=== PATIENT | male | born 2000 | race Hispanic/Latino ===

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

== ENCOUNTER 2019-02-20 07:58 | Emergency (ER) | payer SELFPAY ==
[2019-02-20] MEDS ORDERED: MAGNE/ALUM HYDROXD 30 ML UCUP ONE (08:12)
[2019-02-20] MEDS ORDERED: ONDANSETRON 4 MG (ODT) TAB ONE (08:12)
[2019-02-20] MEDS ORDERED: LIDOCAINE VISCOUS 2% SOLN 15 ML UDC ONE (08:12)
[2019-02-20] MEDS ORDERED: IBUPROFEN 400 MG TAB ONE (08:20)
--- NOTE | 2019-02-20 09:35 | ER ---
Nurse's Notes [facility] Name: Larry Cruz Age: 18 yrs Sex: Male : 2000 Arrival Date: 02/20/2019 Time: 08:00 Bed 20 Private MD: Unknown, Unknown Diagnosis: Acute pharyngitis Presentation: 02/20 08:07 Presenting complaint: Patient states: sore throat for 3 days, subjective fever and em threw up x 1 time. Transition of care: patient was not received from another setting of care. Onset of symptoms was February 17, 2019. Risk Assessment: Do you want to hurt yourself or someone else? Patient reports no desire to harm self or others. Initial Sepsis Screen: Does the patient meet any 2 criteria? RR > 20 per min. Temp <36.0*C (96.8*F)) or > 38.3*C (100.9*F). Yes Does the patient have a suspected source of infection? Yes: Other: sore throat. 08:07 Method Of Arrival: Ambulatory em 08:11 Care prior to arrival: None. iw 08:11 Acuity: LAZARO 4 iw Historical: - Allergies: 08:09 No Known Allergies; em - Home Meds: 08:09 None [Active]; em - PMHx: 08:09 None; em - PSHx: 08:09 None; em - Immunization history:: Adult Immunizations not up to date, Last tetanus immunization: up to date Flu vaccine is not up to date. - Social history:: Smoking status: Patient/guardian denies using tobacco. - Ebola Screening: : Patient negative for fever greater than or equal to 101.5 degrees Fahrenheit, and additional compatible Ebola Virus Disease symptoms Patient denies exposure to infectious person Patient denies travel to an Ebola-affected area in the 21 days before illness onset No symptoms or risks identified at this time. Screenin:10 Abuse screen: Denies threats or abuse. Nutritional screening: No deficits noted. em Tuberculosis screening: No symptoms or risk factors identified. Fall Risk None identified. Assessment: 08:09 General: Appears in no apparent distress. uncomfortable, Behavior is calm, cooperative, em Reports chills for >3 days, fever for > 3 days, feeling ill for 2-3 days. Pain: Complains of pain in throat Pain currently is 10 out of 10 on a pain scale. Pain began 2-3 days ago. Neuro: Level of Consciousness is awake, alert, obeys commands, Oriented to person, place, time, situation, Appropriate for age. Cardiovascular: Capillary refill < 3 seconds Patient's skin is warm and dry. Respiratory: Airway is patent Respiratory effort is even, unlabored, Respiratory pattern is regular, symmetrical, Breath sounds are clear bilaterally. Denies cough. GI: Abdomen is flat, Abd is soft and non tender X 4 quads. Reports nausea, vomiting, Patient currently denies diarrhea. EENT: Nares are clear Oral mucosa is moist. Throat is reddened bilaterally Reports difficulty swallowing since 3 days ago. Derm: Skin is intact, is healthy with good turgor, Skin is pink, warm \T\ dry. Musculoskeletal: Capillary refill < 3 seconds, Range of motion: intact in all extremities. 08:43 Reassessment: refused IV and IV fluids, reports he is feeling better and will drink em water, provider notified. 09:40 Reassessment: Patient appears in no apparent distress at this time. Patient and/or em family updated on plan of care and expected duration. Pain level reassessed. Patient is alert, oriented x 3, equal unlabored respirations, skin warm/dry/pink. Vital Signs: 08:09 BP 117 / 84; Pulse 124; Resp 20; Temp 101.4(O); Pulse Ox 100% on R/A; Weight 86.18 kg; em Height 6 ft. 4 in. (193.04 cm); Pain 10/10; 09:07 BP 129 / 67; Pulse 121; Resp 20; Pulse Ox 100% on R/A; em 09:10 Temp 100.7(O); em 08:09 Body Mass Index 23.13 (86.18 kg, 193.04 cm) em ED Course: 08:00 Patient arrived in ED. ag5 08:00 Hedy Gallego FNP-C [facility]. kb 08:01 Tremayne Melendez MD is Attending Physician. kb 08:01 Unknown, Unknown is Private Physician. ag5 08:01 Quinton Solo LVN is Primary Nurse. em 08:09 Arm band placed on. em 08:10 Patient has correct armband on for positive identification. Bed in low position. Call em light in reach. Pulse ox on. NIBP on. 08:10 Flu and/or RSV swab sent to lab. Strep swab sent to lab. em 08:11 Triage completed. iw 08:15 Strep Sent. 08:15 Flu Sent. ch 09:39 No provider procedures requiring assistance completed. Patient did not have IV access em during this emergency room visit. Administered Medications: 08:16 Drug: Zofran 4 mg Route: PO; em 08:20 Follow up: Response: No adverse reaction; Nausea is decreased em 08:20 Drug: GI Cocktail without - (Maalox Suspension 30 ml, Lidocaine Liquid 2 % 15 em ml) Route: PO; 08:49 Follow up: Response: No adverse reaction; Marked relief of symptoms; Pain is decreased em 08:25 Drug: Ibuprofen 800 mg Route: PO; em 08:49 Follow up: Response: No adverse reaction; Pain is decreased em 08:49 Not Given (Patient Refused): NS 0.9% 1000 ml IV at 1000 ml once em Outcome: 09:34 Discharge ordered by MD. kb 09:39 Discharged to home ambulatory. em 09:39 Condition: good 09:39 Discharge instructions given to patient, Instructed on discharge instructions, follow up and referral plans. medication usage, Demonstrated understanding of instructions, follow-up care, medications, Prescriptions given X 1. 09:40 Patient left the ED. em Signatures: Hedy Gallego, MAJOR GENERAL-C MAJOR GENERAL-Beverly Mckenzie, RN RN Quinton Solo, IT SALES EXECUTIVE IT SALES EXECUTIVE Annabella Allen, RN Kelsey Frazier ag5
--- NOTE | 2019-02-20 09:35 | EDPHYS ---
Physician Documentation [facility] Name: Larry Cruz Age: 18 yrs Sex: Male : 2000 Arrival Date: 02/20/2019 Time: 08:00 Bed 20 Private MD: Unknown, Unknown ED Physician Tremayne Melendez HPI: 02/20 08:24 This 18 yrs old Male presents to ER via Ambulatory with complaints of kb Vomiting, Sore Throat. 08:24 The patient presents with sore throat. The patient describes throat pain as constant. kb Onset: The symptoms/episode began/occurred 3 day(s) ago. Severity of symptoms: At their worst the symptoms were moderate, in the emergency department the symptoms are unchanged. Modifying factors: The symptoms are alleviated by. Associated signs and symptoms: Pertinent positives: fever, nausea, Sore throat vomiting. The patient has not experienced similar symptoms in the past. The patient has not recently seen a physician. Pt reports sore throat, fever (subjective) and vomiting for 3 days. . Historical: - Allergies: 08:09 No Known Allergies; em - Home Meds: 08:09 None [Active]; em - PMHx: 08:09 None; em - PSHx: 08:09 None; em - Immunization history:: Adult Immunizations not up to date, Last tetanus immunization: up to date Flu vaccine is not up to date. - Social history:: Smoking status: Patient/guardian denies using tobacco. - Ebola Screening: : Patient negative for fever greater than or equal to 101.5 degrees Fahrenheit, and additional compatible Ebola Virus Disease symptoms Patient denies exposure to infectious person Patient denies travel to an Ebola-affected area in the 21 days before illness onset No symptoms or risks identified at this time. ROS: 08:20 Eyes: Negative for injury, pain, redness, and discharge, Cardiovascular: Negative for kb chest pain, palpitations, and edema, Respiratory: Negative for shortness of breath, cough, wheezing, and pleuritic chest pain, Back: Negative for injury and pain, MS/Extremity: Negative for injury and deformity, Skin: Negative for injury, rash, and discoloration, Neuro: Negative for headache, weakness, numbness, tingling, and seizure. 08:20 Constitutional: Positive for fever, malaise. 08:20 ENT: Positive for sore throat. 08:20 Abdomen/GI: Positive for nausea and vomiting. Exam: 08:24 Constitutional: This is a well developed, well nourished patient who is awake, alert, kb and in no acute distress. Head/Face: Normocephalic, atraumatic. Neck: Trachea midline, no thyromegaly or masses palpated, and no cervical lymphadenopathy. Supple, full range of motion without nuchal rigidity, or vertebral point tenderness. No Meningismus. Chest/axilla: Normal chest wall appearance and motion. Nontender with no deformity. No lesions are appreciated. Cardiovascular: Regular rate and rhythm with a normal S1 and S2. No gallops, murmurs, or rubs. Normal PMI, no JVD. No pulse deficits. Respiratory: Lungs have equal breath sounds bilaterally, clear to auscultation and percussion. No rales, rhonchi or wheezes noted. No increased work of breathing, no retractions or nasal flaring. Abdomen/GI: Soft, non-tender, with normal bowel sounds. No distension or tympany. No guarding or rebound. No evidence of tenderness throughout. Skin: Warm, dry with normal turgor. Normal color with no rashes, no lesions, and no evidence of cellulitis. MS/ Extremity: Pulses equal, no cyanosis. Neurovascular intact. Full, normal range of motion. Neuro: Awake and alert, GCS 15, oriented to person, place, time, and situation. Cranial nerves II-XII grossly intact. Motor strength 5/5 in all extremities. Sensory grossly intact. Cerebellar exam normal. Normal gait. 08:24 ENT: Posterior pharynx: Airway: normal, no evidence of obstruction, Tonsils: with erythema, with exudate, Uvula: normal, midline, swelling, that is mild, erythema, that is moderate, exudate, that is moderate. Vital Signs: 08:09 BP 117 / 84; Pulse 124; Resp 20; Temp 101.4(O); Pulse Ox 100% on R/A; Weight 86.18 kg; em Height 6 ft. 4 in. (193.04 cm); Pain 10/10; 09:07 BP 129 / 67; Pulse 121; Resp 20; Pulse Ox 100% on R/A; em 09:10 Temp 100.7(O); em 08:09 Body Mass Index 23.13 (86.18 kg, 193.04 cm) em MDM: 08:02 Patient medically screened. kb 08:18 Data reviewed: vital signs, nurses notes. Data interpreted: Pulse oximetry: on room air kb is 100 %. Interpretation: normal. 09:34 Counseling: I had a detailed discussion with the patient and/or guardian regarding: the kb historical points, exam findings, and any diagnostic results supporting the discharge/admit diagnosis, lab results, the need for outpatient follow up, a family practitioner, to return to the emergency department if symptoms worsen or persist or if there are any questions or concerns that arise at home. 02/20 08:06 Order name: Flu; Complete Time: 09:07 kb 02/20 08:06 Order name: Strep; Complete Time: 08:32 kb 02/20 08:32 Order name: Throat Culture EDMS 02/20 08:33 Order name: Dent Screen Profile; Complete Time: 09:31 kb Administered Medications: 08:16 Drug: Zofran 4 mg Route: PO; em 08:20 Follow up: Response: No adverse reaction; Nausea is decreased em 08:20 Drug: GI Cocktail without - (Maalox Suspension 30 ml, Lidocaine Liquid 2 % 15 em ml) Route: PO; 08:49 Follow up: Response: No adverse reaction; Marked relief of symptoms; Pain is decreased em 08:25 Drug: Ibuprofen 800 mg Route: PO; em 08:49 Follow up: Response: No adverse reaction; Pain is decreased em 08:49 Not Given (Patient Refused): NS 0.9% 1000 ml IV at 1000 ml once em Disposition: 13:01 Co-signature as Attending Physician, Tremayne Melendez MD I agree with the assessment and kdr plan of care. Disposition: 02/20/19 09:34 Discharged to Home. Impression: Acute pharyngitis. - Condition is Stable. - Discharge Instructions: Pharyngitis, [id number], Sore Throat, [id number]. - Prescriptions for Zofran 4 mg Oral Tablet - take 1 tablet by ORAL route every 6 hours As needed; 20 tablet. - Medication Reconciliation Form, Thank You Letter, Antibiotic Education, Prescription Opioid Use, Work release form form. - Follow up: Emergency Department; When: As needed; Reason: Worsening of condition. Follow up: Private Physician; When: 2 - 3 days; Reason: Recheck today's complaints, Continuance of care, Re-evaluation by your physician. Signatures: Dispatcher [employer] Hedy Marin, LAURA-Jose Armando SANCHEZ-Tremayne Merritt MD MD kdr Munoz, Edgar, ANALYTICAL CHEMISTRY TEACHER ANALYTICAL CHEMISTRY TEACHER em Corrections: (The following items were deleted from the chart) 08:49 08:33 IV Saline Lock ordered. kb em 09:40 09:34 02/20/2019 09:34 Discharged to Home. Impression: Acute pharyngitis. Condition is em Stable. Forms are Medication Reconciliation Form, Thank You Letter, Antibiotic Education, Prescription Opioid Use. Follow up: Emergency Department; When: As needed; Reason: Worsening of condition. Follow up: Private Physician; When: 2 - 3 days; Reason: Recheck today's complaints, Continuance of care, Re-evaluation by your physician. kb
[2019-02-20 09:45] VITALS: O2SAT 100
[2019-02-20 09:46] VITALS: BP 129/67
[2019-02-20 09:47] VITALS: TEMP 100.7
== END 2019-02-20 09:40 | disposition home or self-care (01) ==
LOC: ER 07:58
DX: J02.9 Acute pharyngitis, unspecified (principal)
CPT/HCPCS: 36415; 86308; 87070; 87081; 87804; 99284

== ENCOUNTER 2021-06-26 18:50 | Emergency (ER) | payer SELFPAY ==
[2021-06-26] MEDS ORDERED: NALOXONE HCL 2 MG/2 ML VIAL ONE (18:51)
[2021-06-26] MEDS ORDERED: DOPAMINE/D5W 400 MG/250 ML BAG IV ONE (18:51)
[2021-06-26] MEDS ORDERED: NALOXONE HCL 2 MG/2 ML VIAL IV ONE (18:51)
[2021-06-26] MEDS ORDERED: NA CHLORIDE 0.9% 1,000 ML IV ONE (18:51)
[2021-06-26] MEDS ORDERED: EPINEPHrine 1 MG/10 ML SYR IV ONE (18:51)
[2021-06-26] MEDS ORDERED: SODIUM CHL 0.9% 1000 ML BAG IV ONE (18:51)
[2021-06-26] MEDS ORDERED: Caclcium Chloride 10% INJ SYR IV ONE (18:51)
[2021-06-26] MEDS ORDERED: RSI MEDICATION KIT IV ONE (18:55)
[2021-06-26] MEDS ORDERED: propofoL 1,000 MG/100 ML VIAL IV ONE ×2 (18:56→23:19)
[2021-06-26 19:29] LABS: Urine Blood Trace-lysed (Negative); Urine Glucose 2+ (Negative); Urine Protein 2+ (Negative); Urine Specific Gravity 1.025 (1.005-1.030)
[2021-06-26 19:35] LABS: Absolute Lymphocytes (CBC) 4.1 K/uL (0.7-4.9); Hematocrit 43.9 % (39.6-49.0); Lymphocytes % 28.4 % (15.3-44.8); MPV 10.4 fL (7.6-11.3); RBC Red Blood Cell Count 4.99 M/uL (4.33-5.43)
[2021-06-26] MEDS ORDERED: PIPERACIL/TAZO 3.375 GM VIAL IV ONE (19:41)
[2021-06-26] MEDS ORDERED: NA CHLORIDE 0.9% 100 ML IV ONE (19:42)
[2021-06-26 19:44] LABS: Protime INR 1.12
[2021-06-26] MEDS ORDERED: NA CHLORIDE 0.9% 1,000 ML ONE ×2 (19:45→21:33)
[2021-06-26 19:53] LABS: Potassium 3.4 mmol/L (3.5-5.1)
[2021-06-26 20:06] LABS: Barbiturates NEGATIVE (NEGATIVE); Benzodiazepines POSITIVE (NEGATIVE); Cocaine POSITIVE (NEGATIVE); METHAMPHETAM NEGATIVE (NEGATIVE); Methadone NEGATIVE (NEGATIVE); Opiates NEGATIVE (NEGATIVE); Phencyclidine NEGATIVE (NEGATIVE); THC Cannibis NEGATIVE (NEGATIVE)
[2021-06-26] MEDS ORDERED: VANCOMYCIN 1 GM/VIAL ONE (20:17)
[2021-06-26] MEDS ORDERED: NA CHLORIDE 0.9% 250 ML ONE (20:17)
--- NOTE | 2021-06-26 21:01 | RAD REPORT ---
EXAM DESCRIPTION: CT - Head C Spine Bruce Landaverde - 06/26/2021 8:38 pm CLINICAL HISTORY: Patient found unresponsive . TECHNIQUE: Computed axial tomography of the head and cervical spine was obtained Computed axial tomography of the chest, abdomen and pelvis was obtained. 100 cc Isovue-300 was given intravenously coronal and sagittal reconstruction was performed. All CT scans are performed using dose optimization technique as appropriate and may include automated exposure control or mA/KV adjustment according to patient size. COMPARISON: None FINDINGS: An intracranial bleed is not seen. The ventricles are normal in caliber. An extra-axial fl uid collection is not noted. Images degraded by respiratory artifact. A cervical fracture is not seen. No dislocation is seen. A mediastinal hematoma is not noted. A pleural effusion is not present. Bilateral lower lobe consolid ation. Moderate bilateral patchy lung opacities. Endotracheal tube with its tip well above the asher . Nasogastric tube with its tip in the first portion of the duodenum The liver, spleen, pancreas, adrenals, kidneys and bladder do not demonstrate a traumatic injury Jin catheter within the bladder IMPRESSION: No acute intracranial abnormality is seen A gross cervical fracture is not seen. If the patient continues have symptoms to suggest intracranial /spinal cord pathology then MRI would be recommended. Moderate bilateral patchy alveolar lung opacities could represent pneumonia or aspiration pneumonitis A NG tube with its tip in the first portion the duodenum
--- NOTE | 2021-06-26 21:01 | RAD REPORT ---
[facility] 7[facility]30 pm CLINICAL HISTORY: Device placement/endotracheal tube placement COMPARISON: none FINDINGS: Endotracheal tube has its tip 3 millimeters from the top of the aortic arch. Nasogastric tube enters the stomach. The tip is not included in the field of view Bilateral lower lobe atelectasis Moderate bilateral patchy lung opacities may represent pneumonia or aspiration pneumonitis Heart is normal size
--- NOTE | 2021-06-26 21:12 | ER ---
Nurse's Notes [facility] Name: Larry Cruz Age: 20 yrs Sex: Male : 2000 Arrival Date: 06/26/2021 Time: 18:56 Bed 2 Private MD: Diagnosis: Pneumonia, unspecified organism;Adverse effect of benzodiazepines, initial encounter;Cocaine use, unspecified with intoxication, unspecified;Altered mental status, unspecified Presentation: 06/26 18:45 Chief complaint: FOUND DOWN IN PARKING LOT, CYANOTIC AND APNEIC. bp 18:45 Coronavirus screen: At this time, the client does not indicate any symptoms associated bp with coronavirus-19. Ebola Screen: No symptoms or risks identified at this time. Initial Sepsis Screen: Does the patient meet any 2 criteria? HR > 90 bpm. Does the patient have a suspected source of infection? No. Patient's initial sepsis screen is negative. Risk Assessment: Do you want to hurt yourself or someone else? Unable to obtain. Onset of symptoms is unknown. 18:45 Method Of Arrival: Carried bp 18:45 Acuity: LAZARO 1 bp Triage Assessment: 18:45 General: Appears distressed, Behavior is unresponsive. Pain: Unable to use pain scale. bp Patient is unresponsive. EENT: No deficits noted. Neuro: Level of Consciousness is unresponsive. Cardiovascular: Rhythm is sinus tachycardia. Respiratory: Airway is compromised Respiratory pattern is agonal. GI: No signs and/or symptoms were reported involving the gastrointestinal system. : No signs and/or symptoms were reported regarding the genitourinary system. Derm: Skin is clammy, Skin is dusky, Skin temperature is cool. Musculoskeletal: No deficits noted. Historical: - Allergies: 18:45 No Known Allergies; bp - Home Meds: 18:45 Unable to obtain [Active]; bp - PMHx: 06/27 04:36 None; st1 - Immunization history:: Adult Immunizations unknown. - Social history:: Smoking status: unknown. Screenin/28 19:00 Abuse screen: АННА. Nutritional screening: No deficits noted. Tuberculosis screening: No bp symptoms or risk factors identified. Fall Risk None identified. Assessment: 18:45 General: PT FOUND APNEIC AND CYANOTIC IN PARKING LOT, PRESUMED OD. 2MG NARCAN IVP.. bp 18:54 Reassessment: 20 MG ETOMIDATE, 100 MG SUCC. bp 19:58 Reassessment: Family for Pt in ER room 2 - [phone]. ld1 20:53 Reassessment: Pt was being taken to CT scan. Became agitated, started to wake up - ld1 resisting ET tube insertion. Increased titration of propofol from 10mcg to 15mcg. While in CT scan pt continued to become agitated, increased titration from 15mcg to 20mcg. Upon arrival to pt room, agitation increased - titrated drip from 20mcg to 30mcg. Pt response was controlled sedation. 21:19 Reassessment: Respiratory notified of SpO2 80%. Respiratory and ERP at bedside. ld1 Equipment changed due to pt vomiting. 21:19 Reassessment: Pt agitation continued - propofol titration increased to 45mcg. ld1 21:25 Reassessment: Respiratory at bedside. Changed ventilator tubing due to emesis in the ld1 tube. Pt propofol remains at 40mcg. Dr. Figueroa at bedside. Versed 2mg pushed for pt comfort. SpO2 94%. 21:54 Reassessment: Pt is maintaining airway and is tolerating propofol drip at 40mcg. ld1 Continue to monitor pt. 22:31 Reassessment: Respiratory at bedside with ERP. ld1 23:51 Reassessment: No changes from previously documented assessment. ld1 23:54 Reassessment: Blood cultures X 1 drawn. Lab came to collect cultures, was unable to ld1 draw cultures due to being a hard stick. 06/27 03:54 Reassessment: the patient is tolerating the ventilator and has been chemically sedated. st1 the patients mother and sister are at the patients bedside. 05:42 Reassessment: Claudia (Mother): [phone]. Patients belongings sent home with mother. al4 05:54 Reassessment: Report was called to BRENDAN Carter. All questions and concerns addressed. st1 05:54 Reassessment: the patient is unable to sign transfer paperwork d/t he is intubated and st1 sedated. 07:11 Reassessment: [facility] transport arrived to take the patient to [address] Vital Signs: 06/26 18:50 BP 170 / 104; Pulse 116; Pulse Ox 100% on 100% BVM; bp 18:54 BP 157 / 96; bp 19:00 BP 163 / 116; Pulse 108; Pulse Ox 100% ; bp 19:37 Weight 100 kg (R); iw 19:49 BP 168 / 111; Pulse 121; Resp 20; Temp 97.3(R); Pulse Ox 99% on ETT vent; ld1 20:00 BP 171 / 115; Pulse 121; Resp 20; Pulse Ox 99% on ETT vent; al4 20:05 BP 162 / 99; Pulse 105; Resp 19; Pulse Ox 99% on ETT vent; al4 20:50 BP 151 / 98; Pulse 124; Resp 19; Pulse Ox 97% on ETT vent; al4 21:12 BP 155 / 92; Pulse 106; Resp 20; Pulse Ox 83% on ETT vent; al4 21:54 BP 95 / 60; Pulse 88; Resp 21; Pulse Ox 94% on ETT vent; ld1 22:00 Temp 97.9(R); ld1 22:17 BP 102 / 70; Pulse 94; Resp 27; Temp 97.9; Pulse Ox 91% on 100% FiO2 ETT vent; bb 22:31 BP 116 / 71; Pulse 98; Resp 31; Pulse Ox 80% on ETT vent; ld1 22:48 BP 122 / 85; Pulse 104; Resp 33; Pulse Ox 80% on ETT vent; ld1 23:25 BP 117 / 72; Pulse 106; Resp 26; Pulse Ox 89% on ETT vent; ld1 23:51 BP 99 / 51; Pulse 112; Resp 25; Pulse Ox 92% on ETT vent; ld1 0301 01:00 BP 74 / 46; Pulse 109; Resp 24; Pulse Ox 99% on ETT vent; ld1 01:30 BP 60 / 31; Pulse 124; Resp 29; Pulse Ox 92% on ETT vent; ld1 02:00 BP 94 / 40; Pulse 105; Resp 24; Pulse Ox 100% on ETT vent; ld1 02:00 BP 114 / 59; Pulse 101; Resp 24; Pulse Ox 100% on ETT vent; ld1 02:39 BP 107 / 56; Pulse 107; Resp 24; Pulse Ox 100% on ETT vent; ld1 03:49 BP 125 / 62; Pulse 106; Resp 24; Pulse Ox 100% on ETT vent; st1 04:28 BP 122 / 66; Pulse 105; Resp 24; Temp 100.2(O); Pulse Ox 99% on ETT vent; st1 04:59 BP 124 / 64; Pulse 101; Resp 24; Pulse Ox 100% on ETT vent; st1 05:59 BP 110 / 67; Pulse 99; Resp 24; Temp 100.8(O); Pulse Ox 100% on ETT vent; st1 06:42 BP 163 / 95; Pulse 84; Resp 24; Pulse Ox 98% on ETT vent; st1 07:11 BP 136 / 74; Pulse 96; Resp 16; Pulse Ox 100% on ETT vent; st1 06/26 21:12 BRENDAN BLACK CALLED RESPIRATORY al4 22:48 Respiratory and ERP at bedside. ld1 [place] Coma Score: 19:25 Eye Response: none(1). Verbal Response: none(1). Motor Response: none(1). Total: 3. cp ED Course: 18:50 Arm band placed on. bp 18:50 Inserted saline lock: 20 gauge in right antecubital area, using aseptic technique. bp 18:55 Inserted saline lock: 18 gauge in left forearm, using aseptic technique. Blood bp collected. 18:56 Patient arrived in ED. iw 19:00 Patient has correct armband on for positive identification. Bed in low position. Call bp light in reach. Side rails up X2. 19:00 Assisted provider with intubation using 7.5 mm ETT via oral route. ET tube secured at bp 23cm at the teeth. Set up intubation tray. Intubated by Seven Ware MD Placement verified by CO2 detector w/ + color change, auscultating bilateral breath sounds, Patient tolerated well. 19:02 Jimenez Ordonez, BRENDAN is Primary Nurse. bp 19:03 Triage completed. bp 19:04 Seven Mcmillan PA is PHCP. cp 19:04 Mariano Figueroa MD is Attending Physician. cp 19:04 Attending Physician role handed off by Mariano Figueroa MD sandra 19:04 Seven Ware MD is Attending Physician. sandra 19:10 Jin cath inserted, using sterile technique, 16 Fr., returned jannet urine. Patient bp tolerated well. 19:20 NGT: inserted 14 Fr. other via oral route Returned gastric contents. iw 19:30 XRAY Chest (1 view) In Process Unspecified. EDMS 19:30 UDS Sent. mb7 19:33 Basic Metabolic Panel Sent. ke1 19:33 CBC with Diff Sent. ke1 19:33 NT PRO-BNP Sent. ke1 19:33 Magnesium Sent. ke1 19:33 LFT's Sent. ke1 19:33 PT-INR Sent. ke1 19:33 Troponin HS Sent. ke1 19:42 Warm blanket given. Head of bed elevated. Changed linen, cleaned patient \\T\\ performed ld1 room care. . 20:38 CT Traumagram (Head C Spine CAP W Con) In Process Unspecified. EDMS 21:17 initiated a transfer with Arnelchasity from [facility]. mw2 21:23 initiated a transfer with Aicha Jolly from [facility] Transfer Center. mw2 21:23 COVID-19/FLU A+B Sent. mw2 21:23 COVID-19/FLU A+B (Document "Date of Onset" if Symptomatic) Sent. mw2 21:37 XRAY CXR (1 view) In Process Unspecified. EDMS 21:40 [facility] denied due to capacity. mw2 21:43 Connected Seven SAMS with the hospitalist from [facility]. mw2 21:[address] Figueroa [facility]. mw2 22:28 Attending Physician role handed off by Seven Ware MD rn 22:28 Mariano Figueroa MD is Attending Physician. rn 06/27 01:[address] Figueroa updated. ld1 03:17 initiated a transfer with Jodi from [facility]. mw2 04:[address] Figueroa with the automotive teacher [facility] mw2 04:[address] Figueroa with the Hospitalist from the [facility]. mw2 04:53 administrative approval given by Jodi Rose/patient has been accepted to [place] [address]/Dr. Ochoa accepted the patient in transfer/report to be called to [phone]. 05:53 Patient transferred, IV remains in place. st1 Administered Medications: 06:11 Discontinued: NS 0.9% 1000 ml IV at 125 ml/hr continuous st1 06/26 18:55 Drug: NS 0.9% 1000 ml Route: IV; Rate: 1 bolus; Site: right antecubital; bp 19:10 Drug: Rocuronium 100 mg Route: IVP; Site: left wrist; iw 19:20 Drug: Propofol 5 mcg/kg/min Route: IV; Rate: calculated rate; Site: left wrist; iw 19:38 Follow up: Rate change 10 mcg/kg/min iw 20:12 Drug: NS 0.9% 1000 ml Route: IV; Rate: 1 bolus; Site: right antecubital; ld1 20:12 Drug: Zosyn (piperacillin-tazobactam) 3.375 grams Route: IVPB; Infused Over: 60 mins; ld1 Site: right antecubital; 20:45 Follow up: IV Intake: 100ml st1 21:51 Follow up: Response: No adverse reaction; IV Status: Completed infusion; IV Intake: ld1 100ml 20:15 Drug: NS 0.9% 1000 ml Route: IV; Rate: 1 bolus; Site: right antecubital; ld1 21:51 Follow up: Response: No adverse reaction; IV Status: Completed infusion; IV Intake: ld1 1000ml 21:35 Drug: NS 0.9% 1000 ml Route: IV; Rate: 125 ml/hr; Site: left antecubital; ld1 21:38 Drug: vancoMYCIN 1 grams Route: IVPB; Infused Over: 2 hrs; Site: right antecubital; ld1 22:00 Follow up: IV Intake: 250ml st1 23:51 Follow up: Response: No adverse reaction; IV Status: Completed infusion; IV Intake: ld1 250ml 22:19 Drug: Lasix (furosemide) 20 mg Route: IVP; Site: right antecubital; ld1 23:48 Follow up: Response: No adverse reaction ld1 22:30 Drug: Dilaudid (HYDROmorphone) 1 mg Route: IVP; Site: right antecubital; ld1 23:50 Follow up: Response: No adverse reaction ld1 22:31 Drug: Versed (midazolam) 2 mg Route: IVP; Site: right antecubital; ld1 23:50 Follow up: Response: No adverse reaction ld1 23:15 Drug: fentaNYL (PF) 50 mcg/h Route: IV; Rate: calculated rate; Site: right femoral; ld1 23:15 Drug: Nimbex (cisatracurium) 0.3 mg Route: IVP; Site: right femoral; ld1 23:50 Follow up: Response: No adverse reaction ld1 23:48 Drug: Lasix (furosemide) 20 mg Route: IVP; Site: right femoral; ld1 06/27 01:43 Drug: Levophed (norepinephrine) (4 mg/250 mL D5W 4 mcg/min Route: IV; Rate: calculated ld1 rate; Site: right femoral; 02:12 Drug: D5-1/2 NS with KCl 20 mEq/L 1000 ml Route: IV; Rate: 100 ml/hr; Site: right ld1 femoral; 02:14 Drug: Solu-CORTEF (hyrdoCORTISONE) 100 mg Route: IVP; Site: right femoral; ld1 03:15 Drug: Dilaudid (HYDROmorphone) 1 mg Route: IVP; Site: right femoral; st1 03:15 Drug: Versed (midazolam) 2 mg Route: IVP; Site: right femoral; st1 03:33 CANCELLED (Physician Discretion): Versed (midazolam) 2 mg IVP once la1 03:33 CANCELLED (Other Intervention Used): Propofol 5 mcg/kg/min IV at calculated rate la1 continuous; titrate per protocol (titrate by 5-10mcg/kg/min every 10 min to max rate of 50 mcg/kg/min) Point of Care Testing: Blood Glucose: 06/26 18:50 Blood Glucose: 235 mg/dL; bp Ranges: Intake: 20:45 IV: 100ml; Total: 100ml. st1 21:51 IV: 100ml; Total: 200ml. ld1 21:51 IV: 1000ml; Total: 1200ml. ld1 22:00 IV: 250ml; Total: 1450ml. st1 23:51 IV: 250ml; Total: 1700ml. ld1 Output: 23:25 Urine: 2000ml (Jin); Total: 2000ml. ld1 Ventilator: 22:17 Fi02: 100%; Rate: 24min; T.V.: 500ml; Peep: 8cm; Mode: CMV; ET tube: 7.5 fr (Oral); bb Outcome: 21:11 ER care complete, transfer ordered by MD. grant 06/27 05:52 Transferred by ground EMS to other acute care facility: [facility] . st1 critical Discharge instructions given to mother was informed on the transfer location of the patient as the patient is currently intubated and sedated 07:13 Patient left the ED. st1 Signatures: Dispatcher [employer] EDMS Seven Ware MD MD cha Ballard, Brenda, RN RN Annabella Childs RN Mariano Ortega MD MD rn Page, Corey, PA PA Jimenez Lucio, RN RN bp Kathy, Duartea 2 Nola Casanova RN RN ld1 Soha Torres mb7 David An al4 Jovita Barth RN RN st1 Garrick Mcneill RN RN keJin Dave [facility] Corrections: (The following items were deleted from the chart) 06/26 21:13 21:12 BP 155 / 92; Pulse 106bpm; Resp 20bpm; Pulse Ox 83% ET / Ventilator; CALLED al4 RESPIRATORY; al4 06/27 02:23 01:30 BP 94 / 40; Pulse 105bpm; Resp 24bpm; Pulse Ox 100% ET / Ventilator; ld1 ld1 04:31 06/26 21:[address] Figueroa with the automotive teacher from [facility] mw2 06/27 04:37 06/26 18:45 PMHx: Unable to Obtain; bp st1 06/27 05:44 05:42 Reassessment: [facility] (Mother): [phone] al4 al4 06:10 05:59 BP 110 / 67; Pulse 99bpm; Resp 24bpm; Pulse Ox 100% ET / Ventilator; st1 st1
--- NOTE | 2021-06-26 21:12 | EDPHYS ---
Physician Documentation [facility] Name: Larry Cruz Age: 20 yrs Sex: Male : 2000 Arrival Date: 06/26/2021 Time: 18:56 Bed 2 Private MD: ED Physician Mariano Figueroa HPI: 06/26 19:25 This 20 yrs old Male presents to ER via Carried with complaints of Unconscious.cp 19:25 The patient presents with decreased responsiveness. Onset: The symptoms/episode cp began/occurred at an unknown time. Possible causes: drug use. 19:25 Current symptoms: In the emergency department the patient's symptoms are unchanged from cp the initial presentation. 19:25 Unable to obtain HPI due to Patient with shallow respirations and unresponsive to voice cp and painful stimuli. Historical: - Allergies: 18:45 No Known Allergies; bp - Home Meds: 18:45 Unable to obtain [Active]; bp - PMHx: 06/27 04:36 None; st1 - Immunization history:: Adult Immunizations unknown. - Social history:: Smoking status: unknown. ROS: 06/26 19:26 Constitutional: Negative for fever. cp Neuro: Positive for altered mental status. Unable to obtain ROS due to altered mental status. Exam: 19:26 Head/Face: Normocephalic, atraumatic. cp 19:26 Constitutional: The patient appears well developed, well nourished. 19:26 Eyes: Pupils: dilated, bilaterally, Conjunctiva: normal, no exudate, no injection, Lids and lashes: appear normal, bilaterally. 19:26 ENT: External ear(s): are unremarkable, Nose: is normal, Mouth: Lips: moist, Oral mucosa: moist, Posterior pharynx: Airway: no evidence of obstruction, patent. 19:26 Chest/axilla: Inspection: normal, Palpation: crepitus, is not appreciated. 19:26 Cardiovascular: Rate: tachycardic, Rhythm: regular, Edema: is not appreciated, JVD: is not appreciated. 19:26 Respiratory: severe repiratory distress is noted, Respirations: shallow respirations, that is severe, Breath sounds: decreased breath sounds, that are severe, throughout, stridor, is not appreciated, wheezing: is not appreciated. 19:26 Abdomen/GI: Exam negative for discomfort, distension, guarding, Inspection: abdomen appears normal. 19:26 Skin: cellulitis, is not appreciated, no rash present. 19:26 Neuro: Orientation: Not oriented to person, place, time, situation, Mentation: somnolent. Vital Signs: 18:50 BP 170 / 104; Pulse 116; Pulse Ox 100% on 100% BVM; bp 18:54 BP 157 / 96; bp 19:00 BP 163 / 116; Pulse 108; Pulse Ox 100% ; bp 19:37 Weight 100 kg (R); iw 19:49 BP 168 / 111; Pulse 121; Resp 20; Temp 97.3(R); Pulse Ox 99% on ETT vent; ld1 20:00 BP 171 / 115; Pulse 121; Resp 20; Pulse Ox 99% on ETT vent; al4 20:05 BP 162 / 99; Pulse 105; Resp 19; Pulse Ox 99% on ETT vent; al4 20:50 BP 151 / 98; Pulse 124; Resp 19; Pulse Ox 97% on ETT vent; al4 21:12 BP 155 / 92; Pulse 106; Resp 20; Pulse Ox 83% on ETT vent; al4 21:54 BP 95 / 60; Pulse 88; Resp 21; Pulse Ox 94% on ETT vent; ld1 22:00 Temp 97.9(R); ld1 22:17 BP 102 / 70; Pulse 94; Resp 27; Temp 97.9; Pulse Ox 91% on 100% FiO2 ETT vent; bb 22:31 BP 116 / 71; Pulse 98; Resp 31; Pulse Ox 80% on ETT vent; ld1 22:48 BP 122 / 85; Pulse 104; Resp 33; Pulse Ox 80% on ETT vent; ld1 23:25 BP 117 / 72; Pulse 106; Resp 26; Pulse Ox 89% on ETT vent; ld1 23:51 BP 99 / 51; Pulse 112; Resp 25; Pulse Ox 92% on ETT vent; ld1 03 01:00 BP 74 / 46; Pulse 109; Resp 24; Pulse Ox 99% on ETT vent; ld1 01:30 BP 60 / 31; Pulse 124; Resp 29; Pulse Ox 92% on ETT vent; ld1 02:00 BP 94 / 40; Pulse 105; Resp 24; Pulse Ox 100% on ETT vent; ld1 02:00 BP 114 / 59; Pulse 101; Resp 24; Pulse Ox 100% on ETT vent; ld1 02:39 BP 107 / 56; Pulse 107; Resp 24; Pulse Ox 100% on ETT vent; ld1 03:49 BP 125 / 62; Pulse 106; Resp 24; Pulse Ox 100% on ETT vent; st1 04:28 BP 122 / 66; Pulse 105; Resp 24; Temp 100.2(O); Pulse Ox 99% on ETT vent; st1 04:59 BP 124 / 64; Pulse 101; Resp 24; Pulse Ox 100% on ETT vent; st1 05:59 BP 110 / 67; Pulse 99; Resp 24; Temp 100.8(O); Pulse Ox 100% on ETT vent; st1 06:42 BP 163 / 95; Pulse 84; Resp 24; Pulse Ox 98% on ETT vent; st1 07:11 BP 136 / 74; Pulse 96; Resp 16; Pulse Ox 100% on ETT vent; st1 06/26 21:12 BRENDAN BLACK CALLED RESPIRATORY al4 22:48 Respiratory and ERP at bedside. ld1 Myranda Coma Score: 19:25 Eye Response: none(1). Verbal Response: none(1). Motor Response: none(1). Total: 3. cp Ventilator: 22:17 Fi02: 100%; Rate: 24min; T.V.: 500ml; Peep: 8cm; Mode: CMV; ET tube: 7.5 fr (Oral); bb Procedures: 19:30 Intubation: Ventilated with 100% NRB prior to procedure. O2 saturation prior to cp procedure was 100 %. Intubated orally using # 3 Gregory blade with 7.5 mm ETT. Successful on second attempt. Ventilated with ventilator. Tube secured measured 23 cm at teeth. Placement verified by CO2 detector with (+) color change, auscultating bilateral breath sounds, O2 saturation after procedure was 100 %. Patient tolerated well. 23:09 Central Line: the site was prepped with Betadine, in sterile fashion, a triple lumen cp catheter was inserted, in the right femoral vein, in 1 attempts. placement was verified, by blood return, the site was dressed with using sterile technique, the patient tolerated the procedure, well. MDM: 19:05 Patient medically screened. sandra 21:50 Physician consultation: was contacted at 21:45, regarding regarding transfer, to [facility]. patient's condition, spoke with hospitalist, DR Ochoa, who consult with girl friday prior to accepting transfer.Band Saw Marker states we do not have ICU beds, to consider transfer, hospitalist agrees, recommends transfer due to ICU capacity. . 22:10 ED course: Consulted with Tire Changer at [facility], he requests increase in rn PEEP, as well as addition of fentanyl drip to help with sedation. Also requests delay of transfer 2/2 unstable state and recent change in O2 sat. . 22:16 ED course: Increased rate to 24 and increased PEEP to 8 per girl friday request. Adding rn lasix. . 23:13 ED course: Spoke with mother, she has not seen him recently and does not know anything rn about what could have happened. Mother does report that one of his friends called and mentioned a 104 fever earlier, but cannot confirm.. 06/27 01:05 Differential diagnosis: Ingestion/exposure to benzos, synthetic opiate over medication, rn intracranial hemorrhage, pneumonia, aspiration pneumonitis, ARDS. Data reviewed: vital signs, nurses notes, lab test result(s), EKG, radiologic studies, CT scan, plain films, and as a result, I will admit patient. Counseling: I had a detailed discussion with the patient and/or guardian regarding: the historical points, exam findings, and any diagnostic results supporting the discharge/admit diagnosis, lab results, radiology results, the need for further work-up and treatment in the hospital, the need to transfer to another facility, for higher level of care, [facility] does not immediately have the required specialist. 01:06 ED course: Another person here with mother, states she spoke with someone who told her rn he took "a bar", and then wouldn't wake up earlier. Still trying to stabilize for transfer. IMproved ABG as well as oxygen now 98%, switched to lung protective strategies and added lasix. BP now steadily decreasing, added levophed. . 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 Decreased FiO2 to 90% and will cont to wean slowly if tolerates. . 04:39 ED course: Pt accepted for transfer to [facility]. Consulted with girl friday and rn hospitalist. . 05:01 ED course: . rn 06/26 19:06 Order name: Basic Metabolic Panel cp 06/26 19:06 Order name: CBC with Diff 06/26 19:06 Order name: LFT's cp 06/26 19:06 Order name: Magnesium cp 06/26 19:06 Order name: NT PRO-BNP cp 06/26 19:06 Order name: PT-INR cp 06/26 19:06 Order name: Troponin HS; Complete Time: 21:59 cp 06/26 19:06 Order name: UDS; Complete Time: 20:08 cp 06/26 20:08 Interpretation: Normal except: BZO POSITIVE; PEARL POSITIVE. cp 06/26 19:06 Order name: ABG; Complete Time: 04:38 cp 06/26 19:06 Order name: Procalcitonin; Complete Time: 20:13 cp 06/26 20:13 Interpretation: Reviewed. 06/26 19:06 Order name: Lactate; Complete Time: 21:06 cp 06/26 21:06 Interpretation: Reviewed. 06/26 19:06 Order name: Basic Metabolic Panel; Complete Time: 21:59 EDMS 06/26 20:13 Interpretation: Normal except: K 3.4; GLUC 254; CRE 1.35; GFR 67. 06/26 19:06 Order name: CBC with Automated Diff; Complete Time: 19:50 EDMS 06/26 19:50 Interpretation: Normal except: WBC 14.50; MCHC 31.7; NEUT A 9.0. 06/26 19:06 Order name: XRAY Chest (1 view); Complete Time: 21:06 cp 06/26 19:06 Order name: CT Traumagram (Head C Spine CAP W Con); Complete Time: 21:06 cp 06/26 19:06 Order name: Liver (Hepatic) Function; Complete Time: 21:59 EDMS 06/26 19:06 Order name: Magnesium; Complete Time: 21:59 EDMS 06/26 19:06 Order name: NT PRO-BNP; Complete Time: 21:59 EDMS 06/26 19:06 Order name: Protime (+INR); Complete Time: 19:50 EDMS 06/26 20:14 Interpretation: Normal except. 06/26 19:29 Order name: Urine Dipstick-Ancillary; Complete Time: 19:50 EDMS 06/26 20:13 Interpretation: Normal except: UGLUC 2+; UBLD Trace-lysed; UPROT 2+. cp 06/26 21:18 Order name: COVID-19/FLU A+B (Document "Date of Onset" if Symptomatic) mw2 06/26 21:19 Order name: COVID-19/FLU A+B; Complete Time: 22:18 EDMS 06/26 21:27 Order name: XRAY CXR (1 view); Complete Time: 22:18 st1 06/26 23:40 Order name: Lactate Sepsis 2 HR Follow-up; Complete Time: 23:57 EDMS 06/27 01:58 Order name: Glucose, Ancillary Testing; Complete Time: 04:35 EDMS 06/27 04:38 Order name: ABG Arterial Blood Gas EDKS 06/26 19:06 Order name: EKG; Complete Time: 19:07 06/26 19:06 Order name: Cardiac monitoring; Complete Time: 19:12 06/26 19:06 Order name: EKG - Nurse/Tech; Complete Time: 19:12 cp 06/26 19:06 Order name: IV Saline Lock; Complete Time: 19:12 cp 06/26 19:06 Order name: Labs collected and sent; Complete Time: 19:12 cp 06/26 19:06 Order name: O2 Per Protocol; Complete Time: 19:12 cp 06/26 19:06 Order name: O2 Sat Monitoring; Complete Time: 19:12 06/26 19:06 Order name: Jin; Complete Time: 19:12 06/26 19:06 Order name: Urine Dipstick-Ancillary (obtain specimen); Complete Time: 19:30 cp 06/26 19:06 Order name: NG Tube; Complete Time: 19:54 cp 06/26 19:38 Order name: Labs - recollect needed: lactic acid; Complete Time: 19:42 mw2 Administered Medications: 06:11 Discontinued: NS 0.9% 1000 ml IV at 125 ml/hr continuous st1 06/26 18:55 Drug: NS 0.9% 1000 ml Route: IV; Rate: 1 bolus; Site: right antecubital; bp 19:10 Drug: Rocuronium 100 mg Route: IVP; Site: left wrist; iw 19:20 Drug: Propofol 5 mcg/kg/min Route: IV; Rate: calculated rate; Site: left wrist; iw 19:38 Follow up: Rate change 10 mcg/kg/min iw 20:12 Drug: NS 0.9% 1000 ml Route: IV; Rate: 1 bolus; Site: right antecubital; ld1 20:12 Drug: Zosyn (piperacillin-tazobactam) 3.375 grams Route: IVPB; Infused Over: 60 mins; ld1 Site: right antecubital; 20:45 Follow up: IV Intake: 100ml st1 21:51 Follow up: Response: No adverse reaction; IV Status: Completed infusion; IV Intake: ld1 100ml 20:15 Drug: NS 0.9% 1000 ml Route: IV; Rate: 1 bolus; Site: right antecubital; ld1 21:51 Follow up: Response: No adverse reaction; IV Status: Completed infusion; IV Intake: ld1 1000ml 21:35 Drug: NS 0.9% 1000 ml Route: IV; Rate: 125 ml/hr; Site: left antecubital; ld1 21:38 Drug: vancoMYCIN 1 grams Route: IVPB; Infused Over: 2 hrs; Site: right antecubital; ld1 22:00 Follow up: IV Intake: 250ml st1 23:51 Follow up: Response: No adverse reaction; IV Status: Completed infusion; IV Intake: ld1 250ml 22:19 Drug: Lasix (furosemide) 20 mg Route: IVP; Site: right antecubital; ld1 23:48 Follow up: Response: No adverse reaction ld1 22:30 Drug: Dilaudid (HYDROmorphone) 1 mg Route: IVP; Site: right antecubital; ld1 23:50 Follow up: Response: No adverse reaction ld1 22:31 Drug: Versed (midazolam) 2 mg Route: IVP; Site: right antecubital; ld1 23:50 Follow up: Response: No adverse reaction ld1 23:15 Drug: fentaNYL (PF) 50 mcg/h Route: IV; Rate: calculated rate; Site: right femoral; ld1 23:15 Drug: Nimbex (cisatracurium) 0.3 mg Route: IVP; Site: right femoral; ld1 23:50 Follow up: Response: No adverse reaction ld1 23:48 Drug: Lasix (furosemide) 20 mg Route: IVP; Site: right femoral; ld1 06/27 01:43 Drug: Levophed (norepinephrine) (4 mg/250 mL D5W 4 mcg/min Route: IV; Rate: calculated ld1 rate; Site: right femoral; 02:12 Drug: D5-1/2 NS with KCl 20 mEq/L 1000 ml Route: IV; Rate: 100 ml/hr; Site: right ld1 femoral; 02:14 Drug: Solu-CORTEF (hyrdoCORTISONE) 100 mg Route: IVP; Site: right femoral; ld1 03:15 Drug: Dilaudid (HYDROmorphone) 1 mg Route: IVP; Site: right femoral; st1 03:15 Drug: Versed (midazolam) 2 mg Route: IVP; Site: right femoral; st1 03:33 CANCELLED (Physician Discretion): Versed (midazolam) 2 mg IVP once la1 03:33 CANCELLED (Other Intervention Used): Propofol 5 mcg/kg/min IV at calculated rate la1 continuous; titrate per protocol (titrate by 5-10mcg/kg/min every 10 min to max rate of 50 mcg/kg/min) Point of Care Testing: Blood Glucose: 06/26 18:50 Blood Glucose: 235 mg/dL; bp Ranges: Critical Glucose Levels:Adult <50 mg/dl or >400 mg/dl <40 mg/dl or >180 mg/dl Disposition: 06/27 05:09 Co-signature as Attending Physician, Mariano Figueroa MD I agree with the assessment and rn plan of care. PA/COMMUNICATIONS BILLING ANALYST's history reviewed, patient interviewed, and examined. HPI: 20 year old male found unresponsive and cyanotic, possible OD. My personal exam of patient reveals: Pt unresponsive, GCS 3, cyanotic. No signs of trauma. + tachypnea. I agree with assessment and care plan and confirm the diagnosis (es) above. Disposition Summary: 06/26/21 21:11 Transfer Ordered Transfer Location: [facility] cp Reason: Higher level of care cp Condition: Critical cp Problem: new cp Symptoms: have improved cp Accepting Physician: Doctor(06/27/21 07:13) st1 Diagnosis - Pneumonia, unspecified organism cp - Adverse effect of benzodiazepines, initial encounter cp - Cocaine use, unspecified with intoxication, unspecified cp - Altered mental status, unspecified cp Forms: - Medication Reconciliation Form cp - SBAR form cp Critical care time excluding procedures: 03:16 Critical care time: Bedside Care: 60 minutes, Consultation: 5 minutes, Family rn Intervention: 15 minutes. Total time: 80 minutes Signatures: Dispatcher [employer] EDSeven Alfaor MD MD cha Williams, Irene, RN RN iw Mariano Figueroa MD MD rn Jin Membreno, FLYING SQUAD WORKER-C FLYING SQUAD WORKER-Cla1 Seven Mcmillan PA PA cp Jimenez Ordonez RN RN bp Corry Chavez mw2 Nola Casanova RN RN ld1 Jovita Barth RN RN st1 Corrections: (The following items were deleted from the chart) 06/26 19:34 19:30 Intubation: Ventilated with 100% NRB prior to procedure. O2 saturation prior to cp procedure was 100 %. Intubated orally using # 3 Gregory blade with 7.5 mm ETT. Successful on second attempt. Ventilated with ventilator. Tube secured measured 23 cm at teeth. Placement verified by CO2 detector with (+) color change, auscultating bilateral breath sounds, O2 saturation after procedure was 100 %. Patient tolerated well, cp 21:43 19:30 Intubation: Ventilated with 100% NRB prior to procedure. O2 saturation prior to cp procedure was 100 %. Intubated orally using # 3 Gregory blade with 7.5 mm ETT. Successful on second attempt. Ventilated with ventilator. Tube secured measured 23 cm at teeth. Placement verified by CO2 detector with (+) color change, auscultating bilateral breath sounds, O2 saturation after procedure was 100 %. Patient tolerated well, cp 06/27 03:33 03:32 Versed (midazolam) 2 mg IVP once ordered. la1 la1 03:33 03:33 Propofol 5 mcg/kg/min IV at calculated rate continuous; titrate per protocol la1 (titrate by 5-10mcg/kg/min every 10 min to max rate of 50 mcg/kg/min) ordered. 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 patient's condition, spoke with hospitalist, DR Ochoa, who consult with girl friday prior to accepting transfer, juanita 06/27 07:13 06/26 21:[address]1
[2021-06-26] MEDS ORDERED: MIDAZOLAM HCL 2 MG/2 ML INJ ONE ×2 (21:30→22:31)
[2021-06-26 21:40] LABS: Albumin 4.1 g/dL (3.4-5.0); Bilirubin Direct 0.3 mg/dL (0-0.2); Bilirubin Total 0.9 mg/dL (0.2-1.0); Magnesium 2.5 mg/dL (1.8-2.4); Protein, Total 7.9 g/dL (6.4-8.2)
[2021-06-26 21:45] LABS: Troponin High Sensitivity 95.1 pg/mL (<58.9)
--- NOTE | 2021-06-26 22:00 | RAD REPORT ---
EXAM DESCRIPTION: Solomon Single View06/26/2021 9:37 pm CLINICAL HISTORY: Shortness of breath COMPARISON: June 26, 2021 FINDINGS: Marked worsening in extensive bilateral pulmonary opacities. Bilateral lower lobe atelect asis. Endotracheal and nasogastric tubes in good position IMPRESSION: Marked worsening in extensive bilateral pulmonary opacities which may represent aspirati on pneumonitis or pneumonia
[2021-06-26 22:02] LABS: Arterial Blood Carboxyhemoglob 0.9 % (0-1.5); Blood Gas Oxyhemoglobin 82.2 % (94-97); Blood O2 Saturation 83.8 % (92-98.5)
[2021-06-26 22:09] LABS: SARS-COV-2 RT PCR NEGATIVE (NEGATIVE)
[2021-06-26] MEDS ORDERED: FUROSEMIDE 20 MG/ 2ML VIAL ONE ×2 (22:18→23:48)
[2021-06-26] MEDS ORDERED: HYDROMORPHONE HCL 2 MG/ML inj ONE (22:31)
[2021-06-26] MEDS ORDERED: FENTANYL CITR 100 MCG/2 ML ONE (22:41)
[2021-06-26] MEDS ORDERED: NA CHLORIDE 0.9% 50 ML ONE (22:42)
[2021-06-26] MEDS ORDERED: CISATRACURIUM INJECTION 2 MG/ML (10 ML Vial) IV ONE (23:02)
[2021-06-27] MEDS ORDERED: NOREPINEPHRINE 4mg/D5W 250mL 4 MG/250 ML BAG IV ONE ×2 (01:37→05:49)
[2021-06-27] MEDS ORDERED: D5.45NS W/KCL 20MEQ 1,000 ML IV ONE (01:55)
[2021-06-27] MEDS ORDERED: HYDROCORTISONE SUC 100 MG INJ ONE (02:16)
[2021-06-27] MEDS ORDERED: MIDAZOLAM HCL 2 MG/2 ML INJ ONE (03:18)
[2021-06-27] MEDS ORDERED: HYDROMORPHONE HCL 2 MG/ML inj ONE (03:20)
[2021-06-27] MEDS ORDERED: propofoL 1,000 MG/100 ML VIAL IV ONE ×2 (03:54→06:56)
[2021-06-27] MEDS ORDERED: FENTANYL CITR 100 MCG/2 ML ONE ×2 (04:01→05:44)
[2021-06-27] MEDS ORDERED: NA CHLORIDE 0.9% 50 ML ONE ×2 (04:02→05:45)
[2021-06-27 04:38] LABS: Arterial Blood Carboxyhemoglob 0.8 % (0-1.5); Blood Gas Oxyhemoglobin 88.1 % (94-97); Blood O2 Saturation 89.6 % (92-98.5)
[2021-06-27 07:48] VITALS: TEMP 100.8
[2021-06-27 07:51] VITALS: BP 136/74; O2SAT 100
--- NOTE | 2021-06-27 09:10 | EKG ---
Test Date: 2021-06-26 Test Time: 18:58:51 Retail Assistant Store Manager: MEASUREMENT RESULTS: Intervals: Rate: 100 [place]: 152 QRSD: 114 QT: 392 QTc: 505 [place]: P: 66 KY: 152 QRS: 87 T: 50 INTERPRETIVE STATEMENTS: Normal sinus rhythm Prolonged QT Abnormal ECG Compared to ECG 03/21/2013 10:50:25 Prolonged QT interval now present Electronically Signed On 06-27-21 09:09:01 DRIER FEEDER by Sanket Nickerson
== END 2021-06-27 07:13 | disposition short-term general hospital (02) ==
LOC: ER 18:50
PROC: 0BH17EZ Insertion of Endotracheal Airway into Trachea, Via Natural or Artificial Opening (ICD-10-PCS; principal; 2021-06-27)
PROC: 5A1935Z Respiratory Ventilation, Less than 24 Consecutive Hours (ICD-10-PCS; 2021-06-27)
PROC: 06HM33Z Insertion of Infusion Device into Right Femoral Vein, Percutaneous Approach (ICD-10-PCS; 2021-06-27)
DX: J18.9 Pneumonia, unspecified organism (principal); F14.929 Cocaine use, unspecified with intoxication, unspecified; T42.4X5A Adverse effect of benzodiazepines, initial encounter; Z20.822 Contact with and (suspected) exposure to COVID-19
CPT/HCPCS: 0240U; 31500; 36415; 51702; 70450; 71045; 71260; 72125; 74177; 80048; 80076; 80307; 81003; 82805; 82947; 83605; 83735; 83880; 84145; 84484; 85025; 85610; 93005; 94002; 94003; 94760; 99291; 99292; J0171; J1170; J1265; J1720; J1940; J2250; J2310; J2543; J2704; J3010; J3370; J7030; J7050; Q9967